=== PATIENT | male | born 1990 | race Caucasian/White ===

== ENCOUNTER 2016-08-21 10:07 | Emergency (ER) | payer OTHER ==
[2016-08-21 10:21] VITALS: BP 123/74; PULSE 75; RESP 20; TEMP 98
--- NOTE | 2016-08-21 10:45 | ED ---
Skin/Abscess/FB HPI - General Chief complaint: Skin/Abscess/Foreign Body Stated complaint: CYST ON FACE Time Seen by Provider: 08/21/16 10:21 Source: patient, RN notes reviewed Mode of arrival: ambulatory Limitations: no limitations - History of Present Illness Initial comments: 25-year-old male presents emergency Department chief complaint abscess to right cheek. Patient states started a few days ago. Patient states that was a pimple was putting some face cream eye. States has not helped. Patient states that he's never had any like this in the past. Patient states causing pain though is only been taking aspirin has not taken any ibuprofen. Patient states she has an ALLERGY to Tylenol codeine and morphine. Patient denies any fevers, chills, headache or dizziness. - Related Data Home Medications Medication Instructions Recorded Confirmed Metadate 50 mg PO BID 02/29/16 02/29/16 Previous Rx's Medication Instructions Recorded Cyclobenzaprine [Flexeril] 10 mg PO TID #20 tablet 03/01/16 Naproxen [Naprosyn] 500 mg PO Q12HR #24 tab 03/01/16 Ibuprofen [Motrin] 600 mg PO Q8HR PRN #30 tab 08/21/16 Sulfamethox-Tmp 800-160Mg [Bactrim 1 each PO Q12HR #20 tab 08/21/16 Ds] traMADol HCl [Ultram] 50 mg PO Q6H PRN #20 tab 08/21/16 Allergies Allergy/AdvReac Type Severity Reaction Status Date / Time acetaminophen Allergy Rash/Hives Verified 08/21/16 10:20 [From Tylenol-Codeine #3] codeine phosphate Allergy Rash/Hives Verified 08/21/16 10:20 [From Tylenol-Codeine #3] morphine AdvReac Nausea & Verified 08/21/16 10:20 Vomiting Review of Systems ROS Statement: Those systems with pertinent positive or pertinent negative responses have been documented in the HPI. ROS Other: All systems not noted in ROS Statement are negative. 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 Absent: scleral icterus, conjunctival injection, periorbital swelling ENT exam: Present: normal oropharynx, mucous membranes moist, TM's normal bilaterally, normal external ear exam. Absent: normal exam (Right cheek there is a 1 cm abscess fluctuant erythematous) Neck exam: Present: normal inspection, full ROM. Absent: tenderness, meningismus, lymphadenopathy Respiratory exam: Present: normal lung sounds bilaterally. Absent: respiratory distress, wheezes, rales, rhonchi, stridor Cardiovascular Exam: Present: regular rate, normal rhythm, normal heart sounds. Absent: systolic murmur, diastolic murmur, rubs, gallop, clicks Neurological exam: Present: alert, oriented X3, CN II-XII intact, reflexes normal. Absent: motor sensory deficit Course Vital Signs 08/21/16 10:19 Temperature 98.0 F Pulse Rate 75 Respiratory 20 Rate Blood Pressure 123/74 O2 Sat by Pulse 99 Oximetry Procedures - Incision & Drainage Consent Obtained: verbal consent Indication: Right facial abscess Site: face Size (cm): 1 Anesthetic Used: lidocaine 1%, without epi I&D Cleaning Method: Chloroprep Needle Aspiration Performed?: Yes I&D Drainage Obtained: Pus, Blood Culture Obtained?: Yes Patient Tolerated Procedure: well, no complications Medical Decision Making - Medical Decision Making 25-year-old male has a right early facial abscess. Patient did have a needle aspiration, drainage performed. Patient was placed on Bactrim and return parameters were discussed. Disposition Clinical Impression: Facial abscess Disposition: HOME SELF-CARE Condition: Stable Instructions: Abscess Incision and Drainage (ED) Additional Instructions: Please return to the Emergency Department if symptoms worsen or any other concerns. Prescriptions: Ibuprofen [Motrin] 600 mg PO Q8HR PRN #30 tab PRN Reason: Pain Sulfamethox-Tmp 800-160Mg [Bactrim Ds] 1 each PO Q12HR #20 tab traMADol HCl [Ultram] 50 mg PO Q6H PRN #20 tab PRN Reason: Pain Time of Disposition: 10:45
== END 2016-08-21 11:00 | disposition home or self-care (01) ==
LOC: EC 10:07
DX: L02.01 Cutaneous abscess of face (principal); F17.200 Nicotine dependence, unspecified, uncomplicated; Z98.2 Presence of cerebrospinal fluid drainage device; Z88.5 Allergy status to narcotic agent; Z88.8 Allergy status to other drugs, medicaments and biological substances; Z79.1 Long term (current) use of non-steroidal anti-inflammatories (NSAID); Z79.899 Other long term (current) drug therapy
CPT/HCPCS: 10060; 87070; 87077; 87186; 87205; 99283

== ENCOUNTER 2020-12-02 17:11 | Emergency (ER) | payer OTHER ==
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
[2020-12-02 18:25] VITALS: BP 132/78; PULSE 84; RESP 16; TEMP 98.1
== END 2020-12-02 18:24 | disposition home or self-care (01) ==
LOC: EC 17:11
DX: S09.90XA Unspecified injury of head, initial encounter (principal); M25.531 Pain in right wrist; S00.511A Abrasion of lip, initial encounter; F12.90 Cannabis use, unspecified, uncomplicated; F17.200 Nicotine dependence, unspecified, uncomplicated; Z79.1 Long term (current) use of non-steroidal anti-inflammatories (NSAID); Y08.89XA Assault by other specified means, initial encounter; Y92.009 Unspecified place in unspecified non-institutional (private) residence as the place of occurrence of the external cause
CPT/HCPCS: 70450; 72125; 99284

== ENCOUNTER 2021-06-06 02:01 | Emergency (ER) | payer OTHER ==
[2021-06-06 02:15] VITALS: BP 128/68; PULSE 94; RESP 20; TEMP 98.1
--- NOTE | 2021-06-06 02:34 | ED ---
Extremity Problem HPI - General Chief complaint: Extremity Injury, Upper Stated complaint: Arm Swelling Time Seen by Provider: 06/06/21 02:29 Source: patient, RN notes reviewed, old records reviewed Mode of arrival: ambulatory Limitations: no limitations - History of Present Illness Initial comments: 30-year-old male DF for evaluation. Patient having significant swelling rash and erythema to both arms both upper arms and chest. Unknown exposure. Patient has no significant history of similar ALLERGIC reaction. No known travel history sick contacts no new medications. Patient has no other complaints of shortness of breath no chest pain, no weakness of feelings of syncope MD Complaint: extremity swelling, other (Erythema and itchiness) -: hour(s) Location: left, right, upper extremity History of Same: No Radiation: none Quality: other (Itching) Consistency: constant Improves with: nothing Worsens with: nothing Associated Symptoms: denies other symptoms - Related Data Home Medications Medication Instructions Recorded Confirmed Metadate 50 mg PO BID 02/29/16 08/21/16 Previous Rx's Medication Instructions Recorded Cyclobenzaprine [Flexeril] 10 mg PO TID #20 tablet 03/01/16 Naproxen [Naprosyn] 500 mg PO Q12HR #24 tab 03/01/16 Ibuprofen [Motrin] 600 mg PO Q8HR PRN #30 tab 08/21/16 Sulfamethox-Tmp 800-160Mg [Bactrim 1 each PO Q12HR #20 tab 08/21/16 Ds] traMADol HCl [Ultram] 50 mg PO Q6H PRN #20 tab 08/21/16 Famotidine [Pepcid] 40 mg PO BID #28 tablet 06/06/21 hydrOXYzine HCL [Atarax] 25 mg PO TID PRN #15 tab 06/06/21 predniSONE 50 mg PO DAILY #5 tab 06/06/21 Allergies Allergy/AdvReac Type Severity Reaction Status Date / Time acetaminophen Allergy Rash/Hives Verified 06/06/21 02:15 [From Tylenol-Codeine #3] codeine phosphate Allergy Rash/Hives Verified 06/06/21 02:15 [From Tylenol-Codeine #3] morphine AdvReac Nausea & Verified 06/06/21 02:15 Vomiting Review of Systems ROS Statement: Those systems with pertinent positive or pertinent negative responses have been documented in the HPI. ROS Other: All systems not noted in ROS Statement are negative. 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 Absent: scleral icterus, conjunctival injection, periorbital swelling ENT exam: Present: normal exam, mucous membranes moist Neck exam: Present: normal inspection. Absent: tenderness, meningismus, lymphadenopathy Respiratory exam: Present: normal lung sounds bilaterally. Absent: respiratory distress, wheezes, rales, rhonchi, stridor Cardiovascular Exam: Present: regular rate, normal rhythm, normal heart sounds. Absent: systolic murmur, diastolic murmur, rubs, gallop, clicks GI/Abdominal exam: Present: soft, normal bowel sounds. Absent: distended, t enderness, guarding, rebound, rigid Extremities exam: Present: normal inspection, full ROM, normal capillary refill. Absent: tenderness, pedal edema, joint swelling, calf tenderness Back exam: Present: normal inspection Neurological exam: Present: alert, oriented X3, CN II-XII intact Psychiatric exam: Present: normal affect, normal mood Skin exam: Present: warm, dry, intact, normal color, urticaria (Both arms and chest are significantly erythematous with itchy rash). Absent: rash Course Vital Signs 06/06/21 02:13 Temperature 98.1 F Pulse Rate 94 Respiratory 20 Rate Blood Pressure 128/68 O2 Sat by Pulse 99 Oximetry - Reevaluation(s) Reevaluation #1: 06/24/21 01:06 Medical record is reviewed Patient symptoms are improved here in the emergency department Patient is informed of results and questions are answered Medical Decision Making - Medical Decision Making 30 male to the ER today for evaluation patient Dese for evaluation regards to itchy rash. This is improved here in the emergency department, patient was placed on appropriate treatment and can be discharged home Disposition Clinical Impression: Urticaria Disposition: HOME SELF-CARE Condition: Good Instructions (If sedation given, give patient instructions): Urticaria (ED) Prescriptions: hydrOXYzine HCL [Atarax] 25 mg PO TID PRN #15 tab PRN Reason: Itching Famotidine [Pepcid] 40 mg PO BID #28 tablet predniSONE 50 mg PO DAILY #5 tab Is patient prescribed a controlled substance at d/c from ED?: No Referrals: None,Stated [Primary Care Provider] - 1-2 days
[2021-06-06] MEDS ORDERED: DEXAMETHASONE SOD PHOSPHATE 10 MG/ML 1 ML VIAL IM STA (02:58)
[2021-06-06] MEDS ORDERED: FAMOTIDINE 20 MG TAB PO STA (02:58)
[2021-06-06] MEDS ORDERED: diphenhydrAMINE 50 MG CAP PO STA (02:58)
[2021-06-06] MEDS ORDERED: hydrOXYzine HCL 25 MG TAB PO ONE (03:10)
== END 2021-06-06 03:34 | disposition home or self-care (01) ==
LOC: EC 02:01
DX: L50.9 Urticaria, unspecified (principal); F17.200 Nicotine dependence, unspecified, uncomplicated; F12.90 Cannabis use, unspecified, uncomplicated; Z88.5 Allergy status to narcotic agent
CPT/HCPCS: 99282; 96372; J1100

== ENCOUNTER 2023-06-18 22:20 | Emergency (ER) | payer OTHER ==
[2023-06-18] MEDS ORDERED: SODIUM CHLORIDE 0.9% 1,000 ML IV ONE (22:38)
[2023-06-18] MEDS ORDERED: methylPREDNISolone SOD SUCCI 125 MG/2 ML VIAL IV STA (22:38)
[2023-06-18] MEDS ORDERED: diphenhydrAMINE 50 MG/ML 1 ML VIAL IVP STA (22:38)
[2023-06-18] MEDS ORDERED: FAMOTIDINE 20 MG/2 ML VIAL IV STA (22:38)
[2023-06-18 22:46] VITALS: TEMP 98.2
[2023-06-19 01:09] VITALS: RESP 18
--- NOTE | 2023-06-19 02:15 | ED ---
Allergic Reaction HPI - General Chief complaint: Allergic Reaction Stated complaint: Allergic reaction, difficulty breathing Time Seen by Provider: 06/18/23 22:36 Source: patient Mode of arrival: ambulatory Limitations: no limitations - History of Present Illness Initial Comments: This patient is a 32-year-old woman who presents to have evaluation for what she thinks is an ALLERGIC reaction. Patient states she had eaten dinner and then noticed that she was becoming itchy and developing a rash. She also is having chest tightness, cough and wheezing. She states feels like her throat is tight. She has not had nausea vomiting or diarrhea. Patient unsure of what may have provoked reaction. MD Complaint: allergic reaction -: minutes(s) Exposure: food Symptoms: rash, itching, difficulty swallowing Severity: moderate Treatment Prior to Arrival: none - Related Data Home Medications Medication Instructions Recorded Confirmed Metadate 50 mg PO BID 02/29/16 08/21/16 Previous Rx's Medication Instructions Recorded Cyclobenzaprine [Flexeril] 10 mg PO TID #20 tablet 03/01/16 Naproxen [Naprosyn] 500 mg PO Q12HR #24 tab 03/01/16 Ibuprofen [Motrin] 600 mg PO Q8HR PRN #30 tab 08/21/16 Sulfamethox-Tmp 800-160Mg [Bactrim 1 each PO Q12HR #20 tab 08/21/16 Ds] traMADol HCl [Ultram] 50 mg PO Q6H PRN #20 tab 08/21/16 Famotidine [Pepcid] 40 mg PO BID #28 tablet 06/06/21 hydrOXYzine HCL [Atarax] 25 mg PO TID PRN #15 tab 06/06/21 predniSONE 50 mg PO DAILY #5 tab 06/06/21 EPINEPHrine [Auvi-Q] 0.3 mg IM ONCE PRN #2 each 06/19/23 Famotidine [Pepcid] 20 mg PO BID #14 tablet 06/19/23 diphenhydrAMINE [Benadryl] 50 mg PO QID PRN #20 capsule 06/19/23 predniSONE 60 mg PO DAILY #30 tab 06/19/23 Allergies Allergy/AdvReac Type Severity Reaction Status Date / Time acetaminophen Allergy Rash/Hives Verified 06/18/23 22:23 [From Tylenol-Codeine #3] codeine phosphate Allergy Rash/Hives Verified 06/18/23 22:23 [From Tylenol-Codeine #3] morphine AdvReac Nausea & Verified 06/18/23 22:23 Vomiting Review of Systems ROS Statement: Those systems with pertinent positive or pertinent negative responses have been documented in the HPI. ROS Other: All systems not noted in ROS Statement are negative. Constitutional: Denies: fever, chills, weakness ENT: Reports: throat pain Respiratory: Reports: cough, wheezes Cardiovascular: Denies: chest pain, palpitations, edema Gastrointestinal: Denies: abdominal pain, nausea, vomiting, diarrhea Genitourinary: Denies: dysuria, hematuria Musculoskeletal: Denies: back pain Skin: Reports: rash, pruritus. 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 Absent: scleral icterus, conjunctival injection ENT exam: Present: normal oropharynx Neck exam: Present: normal inspection, full ROM Respiratory exam: Present: wheezes. Absent: respiratory distress, rales, rhonchi, stridor Cardiovascular Exam: Present: regular rate, normal rhythm, normal heart sounds. Absent: systolic murmur, diastolic murmur, rubs, gallop GI/Abdominal exam: Present: soft. Absent: distended, tenderness, guarding, rebound, rigid, mass, pulsatile mass Extremities exam: Present: normal inspection, normal capillary refill. Absent: pedal edema, calf tenderness Back exam: Present: normal inspection. Absent: CVA tenderness (R), CVA tenderness (L) Neurological exam: Present: alert Skin exam: Present: warm, dry, intact, urticaria. Absent: normal color, vesicles, petechiae Course Vital Signs 06/18/23 06/18/23 06/18/23 22:23 22:33 23:29 Temperature 98.2 F Pulse Rate 69 90 Respiratory 24 22 16 Rate Blood Pressure 123/89 126/74 O2 Sat by Pulse 98 96 Oximetry 06/19/23 06/19/23 00:00 02:00 Temperature Pulse Rate 86 71 Respiratory 18 18 Rate Blood Pressure 110/63 114/73 O2 Sat by Pulse 97 96 Oximetry Medical Decision Making - Medical Decision Making Patient's 32-year-old woman presenting with what appears to be ALLERGIC reaction suspected to food. Patient is given antihistamines, steroids, and dose of epinephrine and did display rapid improvement. She is then watched for number of hours to ensure that there is no rebound as medications are wearing off. Patient prescribed steroids and antihistamine as well as EpiPen. Discussed appropriate further care and follow-up as well as return parameters Was pt. sent in by a medical professional or institution (, PA, [employer], urgent care, hospital, or residential...) When possible be specific @ -[No] Did you speak to anyone other than the patient for history (EMS, parent, family, police, friend...)? What history was obtained from this source @ -[No] Did you review nursing and triage notes (agree or disagree)? Why? @ -[I reviewed and agree with nursing and triage notes] Were old charts reviewed (outside hosp., previous admission, EMS record, old EKG, old radiological studies, urgent care reports/EKG's, residential records)? Report findings @ -[No old charts were reviewed] Differential Diagnosis (chest pain, altered mental status, abdominal pain women, abdominal pain men, vaginal bleeding, weakness, fever, dyspnea, syncope, headache, dizziness, GI bleed, back pain, seizure, CVA, palpatations, mental health, musculoskeletal)? @ -[Differential Dyspnea: Coronary syndrome, arrhythmia, tamponade, asthma, COPD, pulmonary embolism, pneumonia, pneumothorax, pulmonary effusion, anaphylaxis, diabetic ketoacidosis, flailed chest, pulmonary contusion, diaphragmatic rupture, anemia, neuromuscular, this is not meant to be an all-inclusive list. EKG interpreted by me (3pts min.). @ -[As above] X-rays interpreted by me (1pt min.). @ -[None done] CT interpreted by me (1pt min.). @ -[None done] U/S interpreted by me (1pt. min.). @ -[None done] What testing was considered but not performed or refused? (CT, X-rays, U/S, labs)? Why? @ -[None] What meds were considered but not given or refused? Why? @ -[None] Did you discuss the management of the patient with other professionals (professionals i.e. , PA, [employer], lab, RT, psych nurse, social work administrator, scrap crusher, teacher, electronic intelligence officer, supervisor case loading)? Give summary @ -[No] Was smoking cessation discussed for >3mins.? @ -[No] Was critical care preformed (if so, how long)? @ -[Yes, 30 minutes Were there social determinants of health that impacted care today? How? (Homelessness, low income, unemployed, alcoholism, drug addiction, transportation, low edu. Level, literacy, decrease access to med. care, fdc, rehab)? @ -[No] Was there de-escalation of care discussed even if they declined (Discuss DNR or withdrawal of care, Hospice)? DNR status @ -[No] What co-morbidities impacted this encounter? (DM, HTN, Smoking, COPD, CAD, Cancer, CVA, ARF, Chemo, Hep., AIDS, mental health diagnosis, sleep apnea, morbid obesity)? @ -[None] Was patient admitted / discharged? Hospital course, mention meds given and route, prescriptions, significant lab abnormalities, going to OR and other pertinent info. @ -The above Undiagnosed new problem with uncertain prognosis? @ -[No] Drug Therapy requiring intensive monitoring for toxicity (Heparin, Nitro, Insulin, Cardizem)? @ -[No] Were any procedures done? @ -[No] Diagnosis/symptom? @ -[Acute ALLERGIC reaction Anaphylaxis Acute, or Chronic, or Acute on Chronic? @ -Acute Uncomplicated (without systemic symptoms) or Complicated (systemic symptoms)? @ -[Complicated Side effects of treatment? @ -[No] Exacerbation, Progression, or Severe Exacerbation? @ -[No] Poses a threat to life or bodily function? How? (Chest pain, [place], SC, pneumonia, PE, COPD, DKA, ARF, appy, cholecystitis, CVA, Diverticulitis, Homicidal, Suicidal, threat to staff... and all critical care pts) @ -[Yes, ALLERGIC reaction may progress to hypotension or respiratory failure if not treated Disposition Clinical Impression: Anaphylaxis Disposition: HOME SELF-CARE Condition: Good Instructions (If sedation given, give patient instructions): Anaphylaxis (ED) Prescriptions: EPINEPHrine [Auvi-Q] 0.3 mg IM ONCE PRN #2 each PRN Reason: Anaphylaxis diphenhydrAMINE [Benadryl] 50 mg PO QID PRN #20 capsule PRN Reason: Allergic Reaction Famotidine [Pepcid] 20 mg PO BID #14 tablet predniSONE 60 mg PO DAILY #30 tab Is patient prescribed a controlled substance at d/c from ED?: No Referrals: None,Stated [Primary Care Provider] - 1-2 days
[2023-06-19 02:53] VITALS: BP 114/73; PULSE 71
== END 2023-06-19 02:47 | disposition home or self-care (01) ==
LOC: EC 22:20
DX: T78.2XXA Anaphylactic shock, unspecified, initial encounter (principal); F17.200 Nicotine dependence, unspecified, uncomplicated; F12.90 Cannabis use, unspecified, uncomplicated; Z88.5 Allergy status to narcotic agent; Z88.6 Allergy status to analgesic agent
CPT/HCPCS: 99284; 96374; 96375 ×2; 96361; 96372; J0171; J1200; J2930; J3490

== ENCOUNTER 2024-08-12 05:18 | Emergency (ER) | payer OTHER ==
[2024-08-12 05:26] VITALS: RESP 18
--- NOTE | 2024-08-12 06:22 | ED ---
General Adult HPI - General Chief complaint: Eye Problems Stated complaint: L Eye Issue Time Seen by Provider: 08/12/24 06:04 Source: patient, RN notes reviewed Mode of arrival: ambulatory - History of Present Illness Initial comments: 33-year-old male presents to the emergency department for evaluation of left eye pain. He reports that woke up around 4:30 AM and noticed discomfort and blurry vision out of his left eye. He states that last night he felt like his eye was itchy but was not having any pain or vision changes. 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 He does not recall getting anything in his eye. He does not wear contact lens. He states that he is supposed to wear eyeglasses but he does not wear them. - Related Data Home Medications Medication Instructions Recorded Confirmed Metadate 50 mg PO BID 02/29/16 08/21/16 Previous Rx's Medication Instructions Recorded Cyclobenzaprine [Flexeril] 10 mg PO TID #20 tablet 03/01/16 Naproxen [Naprosyn] 500 mg PO Q12HR #24 tab 03/01/16 Ibuprofen [Motrin] 600 mg PO Q8HR PRN #30 tab 08/21/16 Sulfamethox-Tmp 800-160Mg [Bactrim 1 each PO Q12HR #20 tab 08/21/16 Ds] traMADol HCl [Ultram] 50 mg PO Q6H PRN #20 tab 08/21/16 Famotidine [Pepcid] 40 mg PO BID #28 tablet 06/06/21 hydrOXYzine HCL [Atarax] 25 mg PO TID PRN #15 tab 06/06/21 predniSONE 50 mg PO DAILY #5 tab 06/06/21 EPINEPHrine [Auvi-Q] 0.3 mg IM ONCE PRN #2 each 06/19/23 Famotidine [Pepcid] 20 mg PO BID #14 tablet 06/19/23 diphenhydrAMINE [Benadryl] 50 mg PO QID PRN #20 capsule 06/19/23 predniSONE 60 mg PO DAILY #30 tab 06/19/23 Allergies Allergy/AdvReac Type Severity Reaction Status Date / Time acetaminophen Allergy Rash/Hives Verified 08/12/24 05:26 [From Tylenol-Codeine #3] codeine phosphate Allergy Rash/Hives Verified 08/12/24 05:26 [From Tylenol-Codeine #3] morphine AdvReac Nausea & Verified 08/12/24 05:26 Vomiting Review of Systems ROS Statement: Those systems with pertinent positive or pertinent negative responses have been documented in the HPI. ROS Other: All systems not noted in ROS Statement are negative. 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 Past Psychological History: No Psychological Hx Reported Smoking Status: Current every day smoker Past Alcohol Use History: None Reported Past Drug Use History: Marijuana General Exam Limitations: no limitations General appearance: alert, in no apparent distress Head exam: Present: atraumatic, normocephalic, normal inspection Eye exam: Present: PERRL, EOMI, conjunctival injection, other ( foreign body visible on the left eye over the pupil, IOP of the right eye is 6, left eye 7; visual acuity unable to obtain in the left eye, right eye 20/70, bilateral unable to obtain as patient cannot tolerate ) ENT exam: Present: normal exam, mucous membranes moist Respiratory exam: Present: normal lung sounds bilaterally. Absent: respiratory distress, wheezes, rales, rhonchi, stridor Cardiovascular Exam: Present: regular rate, normal rhythm, normal heart sounds. Absent: systolic murmur, diastolic murmur, rubs, gallop, clicks Neurological exam: Present: alert, oriented X3 Psychiatric exam: Present: normal affect, normal mood Skin exam: Present: warm, dry, intact, normal color. Absent: rash Course Vital Signs 08/12/24 05:23 Temperature 98.5 F Pulse Rate 87 Respiratory 18 Rate Blood Pressure 133/83 O2 Sat by Pulse 97 Oximetry Medical Decision Making - Medical Decision Making Was pt. sent in by a medical professional or institution (, PA, ESTHETICS INSTRUCTOR, urgent care, hospital, or [facility]...) When possible be specific @ -No Did you speak to anyone other than the patient for history (EMS, parent, family, police, friend...)? What history was obtained from this source @ -No Did you review nursing and triage notes (agree or disagree)? Why? @ -Triage note states that the patient is unable to see out of his left eye which is false, patient reports that he can see but his vision is blurry. Were old charts reviewed (outside hosp., previous admission, EMS record, old EKG, old radiological studies, urgent care reports/EKG's, [facility] records)? Report findings @ -No old charts were reviewed Differential Diagnosis (chest pain, altered mental status, abdominal pain women, abdominal pain men, vaginal bleeding, weakness, fever, dyspnea, syncope, headache, dizziness, GI bleed, back pain, seizure, CVA, palpatations, mental health, musculoskeletal)? @ -Conjunctivitis, ocular foreign body, corneal abrasion, this list is not all inclusive EKG interpreted by me (3pts min.). @ -None X-rays interpreted by me (1pt min.). @ -None done CT interpreted by me (1pt min.). @ -None done U/S interpreted by me (1pt. min.). @ -None done What testing was considered but not performed or refused? (CT, X-rays, U/S, labs)? Why? @ -None What meds were considered but not given or refused? Why? @ -None Did you discuss the management of the patient with other professionals (professionals i.e. , PA, ESTHETICS INSTRUCTOR, lab, RT, psych nurse, social media manager, hygiene assistant, teacher, employment officer, behavioral health case manager)? Give summary @ -No Was smoking cessation discussed for >3mins.? @ -No Was critical care preformed (if so, how long)? @ -No Were there social determinants of health that impacted care today? How? (Homelessness, low income, unemployed, alcoholism, drug addiction, transportation, low edu. Level, literacy, decrease access to med. care, retirement, rehab)? @ -No Was there de-escalation of care discussed even if they declined (Discuss DNR or withdrawal of care, Hospice)? DNR status @ -No What co-morbidities impacted this encounter? (DM, HTN, Smoking, COPD, CAD, Cancer, CVA, ARF, Chemo, Hep., AIDS, mental health diagnosis, sleep apnea, morbid obesity)? @ -None Was patient admitted / discharged? Hospital course, mention meds given and route, prescriptions, significant lab abnormalities, going to OR and other pertinent info. @ -Discharged. Patient presented the emergency department for evaluation of left eye pain and blurry vision. Patient notes that this started around 4:30 AM when he woke up. He notes that he had some itching of the left eye yesterday. Denies contact lens use. There was difficulty obtaining the patient's visual acuity because he would not open his eyes fully. Patient had normal intraocular pressures bilaterally. Patient did have some relief in his discomfort with proparacaine drops. On Amos lamp examination the patient has a foreign body of the left pupil. Some of the foreign body was able to be removed with a cotton swab but some remained. Dr. Luna attempted removal as well with visualization with the slit lamp. There is no ophthalmology on-call. Patient was provided contact information for 3 local ophthalmologists and advised to contact them upon discharge. Patient was also provided antibiotic eyedrops and ketorolac eyedrops and advised on use of these medications. Patient is understanding and agreeable with discharge plan. Patient stable at time of discharge. Case discussed with Dr. Luna. Undiagnosed new problem with uncertain prognosis? @ -No Drug Therapy requiring intensive monitoring for toxicity (Heparin, Nitro, Insulin, Cardizem)? @ -No Were any procedures done? @ -No Diagnosis/symptom? @ -Foreign body on left eye Acute, or Chronic, or Acute on Chronic? @ -Acute Uncomplicated (without systemic symptoms) or Complicated (systemic symptoms)? @ -Uncomplicated Side effects of treatment? @ -No Exacerbation, Progression, or Severe Exacerbation? @ -No Poses a threat to life or bodily function? How? (Chest pain, [place], [place], pneumonia, PE, COPD, DKA, ARF, appy, cholecystitis, CVA, Diverticulitis, Homicidal, Suicidal, threat to staff... and all critical care pts) @ -No Disposition Clinical Impression: Foreign body in eye Disposition: HOME SELF-CARE Condition: Stable Instructions (If sedation given, give patient instructions): Eye Foreign Body (ED) Additional Instructions: Please follow up with a local transportation agent. Utilize 2 ciprofloxacin eye drops every 6 hours for 7 days. You may also use 1 ketorolac eye drop every 6 hours as needed for discomfort. Is patient prescribed a controlled substance at d/c from ED?: No Referrals: Yasmani Magana MD [STAFF PHYSICIAN] - 1-2 days Stephan Barraza MD [STAFF PHYSICIAN] - 1-2 days Chino Neely MD [STAFF PHYSICIAN] - 1-2 days
[2024-08-12] MEDS: PROPARACAINE 0.5% OPHTH DROPS 15 ML BTL LEFT EYE STA (06:30)
[2024-08-12] MEDS: FLUORESCEIN STRIPS 1 MG STRIP LEFT EYE ONE (06:30)
[2024-08-12] MEDS: DIPH,PERTUS(ACELL)TETVAC-LF 0.5 ML VIAL IM ONE (06:31)
[2024-08-12] MEDS: ONDANSETRON ODT 4 MG TAB PO STA (06:45)
[2024-08-12] MEDS: KETOROLAC 15 MG/ML 1 ML VIAL IM STA (06:46)
[2024-08-12] MEDS: KETOROLAC 0.5% OPHTH DROPS 5 ML BTL LEFT EYE STA (07:53)
[2024-08-12] MEDS: CIPROFLOXACIN 0.3% OPHTH SOLN 5 ML BTL LEFT EYE STA (07:54)
[2024-08-12 08:03] VITALS: BP 129/86; PULSE 82; TEMP 98.4
== END 2024-08-12 08:34 | disposition home or self-care (01) ==
LOC: EC 05:18
DX: T15.90XA Foreign body on external eye, part unspecified, unspecified eye, initial encounter (principal); F17.200 Nicotine dependence, unspecified, uncomplicated; Z88.5 Allergy status to narcotic agent; Z88.6 Allergy status to analgesic agent; Z23 Encounter for immunization
CPT/HCPCS: 90715; 99283; 90471; 96372; J1885